=== PATIENT | male | born 1990 | race Caucasian/White ===

== ENCOUNTER 2016-02-18 14:57 | Inpatient (IN) | payer MEDICAID, OTHER ==
[~2016-02-18] VITALS: Ht 167.6 cm; Wt 68.0 kg
[2016-02-18 15:04] VITALS: Ht 167.6 cm; Wt 68.0 kg
[2016-02-18] MEDS ORDERED: HYDROmorphONE 1 MG/ML SYG IV STA ×2 (15:25→18:24)
[2016-02-18] MEDS ORDERED: SOD CHLORIDE 0.9% 1,000 ML IV STA (15:25)
[2016-02-18] MEDS ORDERED: ONDANSETRON 4 MG INJ IV STA (15:25)
[2016-02-18 15:45] LABS: BASOPHILS % 0.3 % (0.0-2.0); EOSINOPHILS % 0.3 % (0.0-7.0); HEMATOCRIT 45.6 % (42.0-52.0); HEMOGLOBIN 15.4 g/dl (14.0-18.0); LYMPHOCYTES # 1.9 10^3/ul (0.8-2.9); LYMPHOCYTES % 19.7 % (15.0-51.0); MEAN CORPUSCULAR HEMOGLOBIN 30.2 pg (29.0-33.0); MEAN CORPUSCULAR HGB CONC 33.8 g/dl (32.0-37.0); MEAN CORPUSCULAR VOLUME 89.4 fl (82.0-101.0); MONOCYTE # 0.6 10^3/ul (0.3-0.9); MONOCYTES % 6.4 % (0.0-11.0); NEUTROPHIL # 6.9 10^3/ul (1.6-7.5); NEUTROPHILS % 73.3 % (39.0-77.0); PLATELET COUNT 285 10^3/UL (140-440); RED CELL DISTRIBUTION WIDTH 12.6 % (11.5-14.5); UNCORRECTED WBC 9.4 10^3/ul (4.8-10.8); WHITE BLOOD COUNT 9.4 10^3/ul (4.8-10.8)
[2016-02-18 15:50] LABS: CONDITION 1
[2016-02-18 15:54] LABS: INR 0.92; PROTIME 12.4 Sec (12.2-14.2)
[2016-02-18 15:55] LABS: PARTIAL THROMBOPLASTIN TIME 26.7 Sec (25.0-35.0)
[2016-02-18 16:04] LABS: POTASSIUM 3.6 mmol/L (3.5-5.1)
[2016-02-18 16:06] LABS: CREATININE 0.95 mg/dl (0.61-1.24)
[2016-02-18 16:07] LABS: CALCIUM 9.3 mg/dl (8.4-10.2)
[2016-02-18 16:19] LABS: TROPONIN-I 0.072 ng/ml (0.00-0.12)
--- NOTE | 2016-02-18 17:16 | RADRPT ---
PROCEDURE: MR Lumbar Spine without and with contrast CLINICAL INDICATION: Back pain TECHNIQUE: An MRI of the lumbar spine was performed on a Pacinian short bore high-definition 1.5 [employer] utilizing the following sequences: Sagittal and axial T1 weighted, sagittal and axial T2 weig hted, and sagittal T2 weighted with fat saturation. Axial and sagittal T1 fat sat images were obtain ed after administration of 10 cc of Magnevist. COMPARISON: None. FINDINGS: There is normal lordosis of the lumbar spine. No vertebral body subluxation is seen. The vertebral bodies are normal in height and signal intensity. The conus medullaris is visible at the L1 level and appears grossly normal. There is no abnormal contrast enhancement in the conus or cauda equina nerve roots. There is a congenitally narrow spinal canal and L1 through L5 due to short pedicles. L1-L2: The disc is normal in height and signal intensity. No significant disc bulge or protrusion is evident. The central canal and foramina are adequately patent. L2-L3: The disc is normal in height and signal intensity. No significant disc bulge or protrusion is evident. The central canal and foramina are adequately patent. L3-L4: There is mild disk height loss with disk desiccation. There is a prominent central disk pro trusion measures up to 6 mm in AP dimension compressing the thecal sac. There is mild facet arthrop athy. Bilateral neural foramina remain adequately patent. L4-L5: The disk height is maintained. There is mild disk desiccation. There is a broad-based righ t foraminal disk protrusion effacing the right lateral recess. There is mild right neural foraminal stenosis. There is mild bilateral facet arthropathy. The central canal and left neural foramen re isac adequately patent. L5-S1: There is mild disk height loss with disk desiccation. There is minimal disk bulge and mild facet arthropathy. The central canal and bilateral neural foramina remain adequately patent. IMPRESSION: 1. No acute osseous or ligamentous injury. 2. 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 At L3-L4: Prominent central disk protrusion with significant mass effect upon the thecal sac. Both lateral recesses and neural foramina remain adequately patent. At L4-L5: Right foraminal disk protrusion with mild effacement of the right lateral recess. Correl ate with right L5 radiculopathy. Mild right neural foraminal stenosis. The central canal and left neural foramen remain adequately patent. RPTAT: BB .Rylan Sharma MD, Date Time Electronically viewed and signed by .Rylan Sharma MD, on 02/18/2016 17:15 .O/
[2016-02-18] MEDS ORDERED: ONDANSETRON 4 MG INJ IV PRN ×2 (18:30→22:00)
[2016-02-18] MEDS ORDERED: ACETAMINOPHEN 325 MG TAB PO PRN ×2 (18:30→22:00)
[2016-02-18 19:30] VITALS: TEMP 98.6
--- NOTE | 2016-02-18 20:30 | ERD ---
ER Documentation Chief Complaint Date/Time DATE: 02/18/16 TIME: 20:28 Chief Complaint SUUDEN ONSET OF MID BACK PAIN AT WORK HPI Patient is a 25-year-old male with high cholesterol who presents with lower back pain. He was digging with a shovel at 1 PM and had an acute onset of lower back pain. He cannot walk. He needs to be carried into the emergency department. He has had no treatment as of yet. He has never had this before. Upon review of old medical records this is the patient's first visit to the emergency department. He does not currently have a primary doctor. ROS All systems reviewed and are negative except as per history of present illness. Medications Home Meds No Active Prescriptions or Reported Meds Allergies Allergies: Coded Allergies: No Known Allergy (Unverified , 02/18/16) PMhx/Soc Medical and Surgical Hx: pt denies Medical Hx, pt denies Surgical Hx Hx Alcohol Use: Yes Hx Substance Use: No Hx Tobacco Use: No Smoking Status: Former smoker FmHx Family History: No diabetes Physical Exam Vitals Vital Signs Date Time Temp Pulse Resp B/P Pulse Ox O2 Delivery O2 Flow Rate FiO2 02/18/16 17:22 98.0 89 18 126/67 99 Room Air 02/18/16 15:04 98.0 112 18 133/84 98 Physical Exam Const: Moderate distress secondary to pain Head: Atraumatic Eyes: Normal Conjunctiva ENT: Normal External Ears, Nose and Mouth. Neck: Full range of motion..~ No meningismus. Resp: Clear to auscultation bilaterally Cardio: Regular rate and rhythm, no murmurs Abd: Soft, non tender, non distended. Normal bowel sounds Skin: No petechiae or rashes Back: Midline tenderness in the lumbar spine without deformity noted Ext: No cyanosis, or edema Neur: Awake and alert, weakness in the lower extremities bilaterally, no saddle anesthesia, no incontinence Result Diagram: 02/18/16 1530 02/18/16 1530 Results 24 hrs Laboratory Tests Test 02/18/16 15:30 Activated Partial Thromboplast Time 26.7Sec Anion Gap 16 Basophils # 0.010^3/ul Basophils % 0.3% Blood Morphology Comment Blood Urea Nitrogen 17mg/dl Calcium Level 9.3mg/dl Carbon Dioxide Level 30mmol/L Chloride Level 102mmol/L Creatinine 0.95mg/dl Eosinophils # 0.010^3/ul Eosinophils % 0.3% Glucose Level 98mg/dl Hematocrit 45.6% Hemoglobin 15.4g/dl INR International Normalized Ratio 0.92 Lymphocytes # 1.910^3/ul Lymphocytes % 19.7% Mean Corpuscular Hemoglobin 30.2pg Mean Corpuscular Hemoglobin Concent 33.8g/dl Mean Corpuscular Volume 89.4fl Mean Platelet Volume 7.0fl Monocytes # 0.610^3/ul Monocytes % 6.4% Neutrophils # 6.910^3/ul Neutrophils % 73.3% Nucleated Red Blood Cells # 0.010^3/ul Nucleated Red Blood Cells % 0.0/100WBC Platelet Count 87539^3/UL Potassium Level 3.6mmol/L Prothrombin Time 12.4Sec Prothrombin Time Ratio 1.0 Red Blood Count 5.1010^6/ul Red Cell Distribution Width 12.6% Sodium Level 144mmol/L Troponin I 0.072ng/ml White Blood Count 9.410^3/ul Current Medications Medications (Trade) Dose Ordered Sig/Denzel Route PRN Reason Start Time Stop Time Status Last Admin Dose Admin Sodium Chloride (NS) 1,000 ml @ 1,000 mls/hr Q1H STAT IV 02/18/16 15:25 02/18/16 16:24 DC 02/18/16 15:33 Hydromorphone HCl (Dilaudid) 1 mg ONCE STAT IV 02/18/16 15:25 02/18/16 15:27 DC 02/18/16 15:33 Ondansetron HCl (Zofran Inj) 4 mg ONCE STAT IV 02/18/16 15:25 02/18/16 15:27 DC 02/18/16 15:33 Hydromorphone HCl (Dilaudid) 1 mg ONCE STAT IV 02/18/16 18:24 02/18/16 18:25 DC 02/18/16 18:37 Ondansetron HCl (Zofran Inj) 4 mg BRIDGE ORDER PRN IV NAUSEA AND/OR VOMITING 02/18/16 18:30 02/19/16 18:29 Acetaminophen (Tylenol Tab) 650 mg ER BRIDGE PRN PO MILD PAIN/FEVER 02/18/16 18:30 02/19/16 18:29 Procedures/MDM MRI shows central disc protrusion with compression of the thecal sac per radiology. Patient is a 25-year-old male presents with acute onset of lower back pain. He has intractable pain with ambulatory dysfunction. He will need admission for pain control. At this point I doubt cauda equina syndrome, epidural hematoma, or epidural abscess. I spoke with Dr. nava who will see the patient in consultation. I spoke with Dr. Euceda who will admit the patient to the hospital as he does not currently have a primary doctor and has never been admitted before. The patient will be admitted to a medical surgical bed. Departure Diagnosis: Primary Impression: Back pain Back pain location: low back pain Chronicity: acute Back pain laterality: midline Sciatica presence: without sciatica Qualified Code: M54.5 - Acute midline low back pain without sciatica Additional Impression: Ambulatory dysfunction Condition: Stable SHAMIR BUCIO MD Feb 18, 2016 20:30
[2016-02-18 20:45] VITALS: BP 140/79; RESP 68
[2016-02-18] MEDS ORDERED: NACL 0.9% 3 ML SYG IV SCH (22:00)
[2016-02-18] MEDS ORDERED: HYDROCODONE/APAP (5/325) TAB PO PRN (22:00)
[2016-02-18] MEDS: DOCUSATE SODIUM 100 MG CAP PO SCH (22:31)
[2016-02-18] MEDS: morphine 2 MG INJ IV PRN (22:33)
--- NOTE | 2016-02-18 23:52 | HP ---
DATE OF ADMISSION: 02/18/2016 TIME: 10:00 p.m. CHIEF COMPLAINT: Back pain. HISTORY OF PRESENT ILLNESS: The patient is a 25-year-old male with no significant past medical hist ory. 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 He does stat e that he had an episode of back pain approximately a year ago. The patient had a lumbar spine MRI in the ER that showed no acute osseous or ligamentous injury. There was congenital narrow spinal co rd with disk disease L3-L4 and L4-L5. There is also L3-L4 central disk protrusion with significant mass effect on the thecal sac. There was also L4-L5 right foraminal disk protrusion with mild effac ement of the right lateral recess. Neurosurgery with Dr. Langston was contacted in the ED. At this time, recommendation is for no surgery. The patient does state that he has significant pain at this time in his back. He has no other complaints. Denies any weakness in his extremities or any incon tinence. The patient cannot walk at this time secondary to pain. Once again, has no other complain ts. PAST MEDICAL HISTORY: Denies. PAST SURGICAL HISTORY: Denies. HOME MEDICATIONS: None reported. FAMILY HISTORY: Mother with back problems and heart problems, specifics not known. SOCIAL HISTORY: Denies any current alcohol, tobacco, or drug abuse. States he used to smoke and dr zahida 2 years ago, but has since quit. REVIEW OF SYSTEMS: A 12-point review of systems negative except for that as discussed in HPI. PHYSICAL EXAMINATION: VITAL SIGNS: Temperature is 98.5, pulse 60, respiratory rate 18, BP is 140/79, saturation 98% on ro om air. GENERAL: Mild distress. Alert and oriented. HEENT: Normocephalic, atraumatic. Pupils equal, round, and reactive to light. LUNGS: Clear to auscultation. CARDIOVASCULAR: Regular rate and rhythm. ABDOMEN: Nondistended, nontender, soft. EXTREMITIES: No clubbing, cyanosis, or edema. LABORATORIES: CBC within normal limits. Chemistry within normal limits. INR is 0.92. DIAGNOSTICS: Lumbar spine MRI as per HPI. ASSESSMENT AND PLAN: 1. Severe back pain. The patient is unable to ambulate at this time secondary to the pain. The pa tient has chronic prominent central disk protrusion at L3-L4 with significant mass effect upon the t hecal sac. The patient also has L4-L5 right foraminal disk protrusion with mild effacement of the r ight lateral recess. Dr. Langston, neurosurgeon, has already evaluated and states that the patient d oes not need surgery at this time. Treat medically with pain control. We will get a PT evaluation. Will discuss the need for steroids with neurosurgery. 2. Prophylaxis. Lovenox. Dictated By: MONI LYNNE MD BS/MOUNIKA Conf#: [id number] DID#: [id number]
[2016-02-19] MEDS: morphine 2 MG INJ IV PRN ×4 (03:18→20:54)
[2016-02-19 05:43] LABS: POTASSIUM 3.7 mmol/L (3.5-5.1)
[2016-02-19 05:45] LABS: BASOPHILS % 0.4 % (0.0-2.0); CREATININE 0.81 mg/dl (0.61-1.24); EOSINOPHILS # 0.1 10^3/ul (0.0-0.5); EOSINOPHILS % 1.1 % (0.0-7.0); HEMATOCRIT 43.7 % (42.0-52.0); HEMOGLOBIN 15.1 g/dl (14.0-18.0); LYMPHOCYTES # 2.3 10^3/ul (0.8-2.9); LYMPHOCYTES % 33.7 % (15.0-51.0); MEAN CORPUSCULAR HEMOGLOBIN 30.7 pg (29.0-33.0); MEAN CORPUSCULAR HGB CONC 34.4 g/dl (32.0-37.0); MEAN CORPUSCULAR VOLUME 89.2 fl (82.0-101.0); MEAN PLATELET VOLUME 7.1 fl (7.4-10.4); MONOCYTE # 0.6 10^3/ul (0.3-0.9); MONOCYTES % 8.8 % (0.0-11.0); NEUTROPHIL # 3.8 10^3/ul (1.6-7.5); PLATELET COUNT 285 10^3/UL (140-440); RED CELL DISTRIBUTION WIDTH 12.4 % (11.5-14.5); UNCORRECTED WBC 6.8 10^3/ul (4.8-10.8); WHITE BLOOD COUNT 6.8 10^3/ul (4.8-10.8)
[2016-02-19 05:46] LABS: CALCIUM 9.1 mg/dl (8.4-10.2); PHOSPHORUS 4.5 mg/dl (2.5-4.9)
[2016-02-19 05:47] LABS: CHOL/HDL RATIO 4.6 RATIO; MAGNESIUM 1.9 mg/dl (1.7-2.5)
[2016-02-19 06:10] LABS: CONDITION 1
[2016-02-19 07:46] VITALS: BP 109/84; RESP 18
[2016-02-19] MEDS: ENOXAPARIN 40 MG/0.4 ML SYG SC SCH (08:55)
[2016-02-19] MEDS: DOCUSATE SODIUM 100 MG CAP PO SCH ×2 (08:59→22:28)
--- NOTE | 2016-02-19 14:19 | PN ---
Date/Time of Note Date/Time of Note DATE: 02/19/16 TIME: 14:17 Assessment/Plan VTE Prophylaxis VTE Prophylaxis Intervention: LMWH Lines/Catheters IV Catheter Type (from Nrsg): Saline Lock Assessment/Plan Assessment/Plan 1. New-onset back pain. 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 Continue pain control. Await neurosurgery evaluation. 2. Fluids, electrolytes, and nutrition. Regular diet as tolerated. 3. DVT prophylaxis. Subcutaneous Lovenox. 4. Gastrointestinal prophylaxis. Histamine 2 receptor blockers. 5. Plan. Await neurosurgery evaluation. Continue pain control. Case discussed with Dr. Crump. Subjective 24 Hr Interval Summary Free Text/Dictation Complains of pain with minimal movement. Remains on bedrest. Exam/Review of Systems Vital Signs Vitals Vital Signs Date Time Temp Pulse Resp B/P Pulse Ox O2 Delivery O2 Flow Rate FiO2 02/19/16 07:46 98.6 80 18 109/84 96 02/18/16 19:30 Room Air Intake and Output 02/18/16 02/18/16 02/19/16 15:00 23:00 07:00 Intake Total 380 ml Output Total 1200 ml Balance -820 ml Exam General: Adequately build 25 year-old male lying in bed in no apparent distress. HEENT: Normocephalic, atraumatic. Eyes: Anicteric sclerae, conjunctivae clear. ENT: Nasal septum midline, oral mucosa moist. Neck supple, no JVD noticed. Respiratory: Bilaterally clear breath sounds. No use of accessory muscles of respiration. No adventitious breath sounds. Cardiovascular: S1, S2 heard. No murmurs or gallops. Abdomen: Soft, nontender, and nondistended. Bowel sounds positive in all 4 quadrants. Genitourinary: Deferred. Extremities: No cyanosis, no clubbing, no edema. Peripheral pulses palpable. Neurologic: Cranial nerves II through XII grossly intact. The patient is awake, alert, and oriented. Skin: Normal skin turgor. No skin rashes. Results Result Diagram: 02/19/16 0457 02/19/16 0457 Results 24 hrs Laboratory Tests Test 02/18/16 15:30 02/19/16 04:57 Activated Partial Thromboplast Time 26.7 Anion Gap 16 15 Basophils # 0.0 0.0 Basophils % 0.3 0.4 Blood Morphology Comment Blood Urea Nitrogen 17 15 Calcium Level 9.3 9.1 Carbon Dioxide Level 30 27 Chloride Level 102 107 Creatinine 0.95 0.81 Eosinophils # 0.0 0.1 Eosinophils % 0.3 1.1 Glucose Level 98 81 Hematocrit 45.6 43.7 Hemoglobin 15.4 15.1 INR International Normalized Ratio 0.92 Lymphocytes # 1.9 2.3 Lymphocytes % 19.7 33.7 Mean Corpuscular Hemoglobin 30.2 30.7 Mean Corpuscular Hemoglobin Concent 33.8 34.4 Mean Corpuscular Volume 89.4 89.2 Mean Platelet Volume 7.0 L 7.1 L Monocytes # 0.6 0.6 Monocytes % 6.4 8.8 Neutrophils # 6.9 3.8 Neutrophils % 73.3 56.0 Nucleated Red Blood Cells # 0.0 0.0 Nucleated Red Blood Cells % 0.0 0.0 Platelet Count 285 285 Potassium Level 3.6 3.7 Prothrombin Time 12.4 Prothrombin Time Ratio 1.0 Red Blood Count 5.10 4.90 Red Cell Distribution Width 12.6 12.4 Sodium Level 144 145 H Troponin I 0.072 White Blood Count 9.4 6.8 # Cholesterol Level 183 Cholesterol/HDL Ratio 4.6 HDL Cholesterol 39 Hemoglobin A1c 5.2 LDL Cholesterol, Calculated 126 Magnesium Level 1.9 Phosphorus Level 4.5 Triglycerides Level 89 Medications Medications Current Medications Ondansetron HCl (Zofran Inj) 4 mg Q6H PRN IV NAUSEA AND/OR VOMITING; Start 02/17 at 22:00 Acetaminophen (Tylenol Tab) 650 mg Q6H PRN PO PAIN LEVEL 1-3 OR FEVER; Start at 22:00 Acetaminophen/ Hydrocodone Bitart ([place] (5/325)) 1 tab Q6H PRN PO MODERATE PAIN LEVEL 4-6 Last administered on 02/19/16 06:04; Admin Dose 1 TAB; Start 02/17 at 22:00 Morphine Sulfate (morphine) 2 mg Q2H PRN IV SEVERE PAIN LEVEL 7-10 Last administered on 02/19/16 11:01; Admin Dose 2 MG; Start 02/18/16 at 22:00 Docusate Sodium (Colace) 100 mg Q12H PO Last administered on 02/19/16 08:59; Admin Dose 100 MG; Start 02/18/16 at 22:00 Enoxaparin Sodium (Lovenox) 40 mg DAILY SC Last administered on 02/19/16t 08:55 ; Admin Dose 40 MG; Start 02/19/16 at 09:00 HERSON VICENTE NP Feb 19, 2016 14:18
[2016-02-19] MEDS ORDERED: DIAZEPAM 5 MG TAB PO PRN (18:00)
[2016-02-19] MEDS: KETOROLAC 30 MG INJ IV SCH ×2 (18:28→23:35)
[2016-02-19] MEDS: DEXAMETHASONE 4 MG/ML 1 ML INJ IV SCH ×2 (18:28→23:35)
[2016-02-19 20:27] VITALS: BP 122/64; RESP 18
[2016-02-20] MEDS: KETOROLAC 30 MG INJ IV SCH ×3 (05:07→17:25)
[2016-02-20] MEDS: DEXAMETHASONE 4 MG/ML 1 ML INJ IV SCH ×3 (05:07→17:26)
[2016-02-20 07:53] VITALS: BP 98/56; RESP 20
[2016-02-20] MEDS: ENOXAPARIN 40 MG/0.4 ML SYG SC SCH (08:28)
[2016-02-20] MEDS: DOCUSATE SODIUM 100 MG CAP PO SCH ×2 (10:45→21:25)
--- NOTE | 2016-02-20 11:16 | PN ---
Date/Time of Note Date/Time of Note DATE: 02/20/16 TIME: 11:15 Assessment/Plan VTE Prophylaxis VTE Prophylaxis Intervention: LMWH Lines/Catheters IV Catheter Type (from Nrs): Saline Lock Assessment/Plan Chief Complaint/Hosp Course 1. New-onset back pain. 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 Continue pain control. Status post neurosurgery evaluation. The patient was started on Decadron. Symptoms improving. No surgical interventions as of now. Will order physical therapy evaluation. 2. Fluids, electrolytes, and nutrition. Regular diet as tolerated. 3. DVT prophylaxis. Subcutaneous Lovenox. 4. Gastrointestinal prophylaxis. Histamine 2 receptor blockers. 5. Plan. Await physical therapy evaluation. Continue pain control. Case discussed with Dr. Crump. Problems: Subjective 24 Hr Interval Summary Free Text/Dictation Back pain well controlled. Exam/Review of Systems Vital Signs Vitals Vital Signs Date Time Temp Pulse Resp B/P Pulse Ox O2 Delivery O2 Flow Rate FiO2 02/20/16 07:53 97.7 77 20 98/56 97 02/18/16 19:30 Room Air Intake and Output 02/19/16 02/19/16 02/20/16 14:59 22:59 06:59 Intake Total 1200 ml 960 ml Output Total 900 ml 550 ml Balance 300 ml 410 ml Exam General: Adequately build 25 year-old male lying in bed in no apparent distress. HEENT: Normocephalic, atraumatic. Eyes: Anicteric sclerae, conjunctivae clear. ENT: Nasal septum midline, oral mucosa moist. Neck supple, no JVD noticed. Respiratory: Bilaterally clear breath sounds. No use of accessory muscles of respiration. No adventitious breath sounds. Cardiovascular: S1, S2 heard. No murmurs or gallops. Abdomen: Soft, nontender, and nondistended. Bowel sounds positive in all 4 quadrants. Genitourinary: Deferred. Extremities: No cyanosis, no clubbing, no edema. Peripheral pulses palpable. Neurologic: Cranial nerves II through XII grossly intact. The patient is awake, alert, and oriented. Skin: Normal skin turgor. No skin rashes. Results Result Diagram: 02/19/16 0457 02/19/16 0457 Medications Medications Current Medications Ondansetron HCl (Zofran Inj) 4 mg Q6H PRN IV NAUSEA AND/OR VOMITING; Start 02/17 at 22:00 Acetaminophen (Tylenol Tab) 650 mg Q6H PRN PO PAIN LEVEL 1-3 OR FEVER; Start at 22:00 Acetaminophen/ Hydrocodone Bitart ([place] (5/325)) 1 tab Q6H PRN PO MODERATE PAIN LEVEL 4-6 Last administered on 02/19/16 06:04; Admin Dose 1 TAB; Start 02/17 at 22:00 Morphine Sulfate (morphine) 2 mg Q2H PRN IV SEVERE PAIN LEVEL 7-10 Last administered on 02/19/16 20:54; Admin Dose 2 MG; Start 02/18/16 at 22:00 Docusate Sodium (Colace) 100 mg Q12H PO Last administered on 02/20/16 10:45; Admin Dose 100 MG; Start 02/18/16 at 22:00 Enoxaparin Sodium (Lovenox) 40 mg DAILY SC Last administered on 02/20/16 08:28 ; Admin Dose 40 MG; Start 02/19/16 at 09:00 Dexamethasone (Decadron) 4 mg Q6 IV Last administered on 02/20/16 05:07; Admin Dose 4 MG; Start 02/19/16 at 18:00; Stop 02/21/16 at 17:59 Ketorolac Tromethamine (Toradol) 30 mg Q6H IV Last administered on 02/20/16 05: 07; Admin Dose 30 MG; Start 02/19/16 at 18:00; Stop 02/21/16 at 17:59 Diazepam (Valium) 5 mg TID PRN PO MUSCLE SPASMS; Start 02/19/16 at 18:00 HERSON VICENTE NP Feb 20, 2016 11:15
[2016-02-20 12:30] VITALS: BP 110/78; PULSE 70; RESP 16
--- NOTE | 2016-02-20 19:45 | CONS ---
Date/Time of Note Date/Time of Note DATE: 02/20/16 TIME: 19:41 Assessment/Plan Assessment/Plan Additional Assessment/Plan Acute lumbago with lumbar spondylosis, possible acute disc herniations. Pain controlled. No neurological deficits. Can D/C Decadron tomorrow. f/u with PMD for pain management. Consultation Date/Type/Reason Admit Date/Time Feb 18, 2016 at 18:30 Initial Consult Date Type of Consultation: Neurosurgery Reason for Consultation Back Pain 24 HR Interval Summary Free Text/Dictation Patient much better today. States that his pain has improved. Denies thigh numbness, denies radiating pain. Denies bowel or bladder issues or saddle anesthesia. Exam/Review of Systems Vital Signs Vitals Vital Signs Date Time Temp Pulse Resp B/P Pulse Ox O2 Delivery O2 Flow Rate FiO2 02/20/16 12:30 70 16 110/78 02/20/16 07:53 97.7 97 02/18/16 19:30 Room Air Intake and Output 02/19/16 02/19/16 02/20/16 15:00 23:00 07:00 Intake Total 1200 ml 960 ml Output Total 900 ml 550 ml Balance 300 ml 410 ml Exam Constitutional: alert, oriented, well developed Musculoskeletal: muscle tone, other (back non-tender to palapation. Able to move legs better without pain. ) Neurological: COMPLAINT ANALYST II-XII intact, nl mental status, nl speech, nl strength Results Result Diagram: 02/19/16 0457 02/19/16 0457 Medications Medications Current Medications Ondansetron HCl (Zofran Inj) 4 mg Q6H PRN IV NAUSEA AND/OR VOMITING; Start 02/17 at 22:00 Acetaminophen (Tylenol Tab) 650 mg Q6H PRN PO PAIN LEVEL 1-3 OR FEVER; Start at 22:00 Acetaminophen/ Hydrocodone Bitart ([place] (5/325)) 1 tab Q6H PRN PO MODERATE PAIN LEVEL 4-6 Last administered on 02/19/16 06:04; Admin Dose 1 TAB; Start 02/17 at 22:00 Morphine Sulfate (morphine) 2 mg Q2H PRN IV SEVERE PAIN LEVEL 7-10 Last administered on 02/19/16 20:54; Admin Dose 2 MG; Start 02/18/16 at 22:00 Docusate Sodium (Colace) 100 mg Q12H PO Last administered on 02/20/16 10:45; Admin Dose 100 MG; Start 02/18/16 at 22:00 Enoxaparin Sodium (Lovenox) 40 mg DAILY SC Last administered on 02/20/16 08:28 ; Admin Dose 40 MG; Start 02/19/16 at 09:00 Dexamethasone (Decadron) 4 mg Q6 IV Last administered on 02/20/16 17:26; Admin Dose 4 MG; Start 02/19/16 at 18:00; Stop 02/21/16 at 17:59 Ketorolac Tromethamine (Toradol) 30 mg Q6H IV Last administered on 02/20/16 17: 25; Admin Dose 30 MG; Start 02/19/16 at 18:00; Stop 02/21/16 at 17:59 Diazepam (Valium) 5 mg TID PRN PO MUSCLE SPASMS; Start 02/19/16 at 18:00 FRANCINE TAPIA MD Feb 20, 2016 19:45
[2016-02-20 21:36] VITALS: BP 109/58; RESP 18
[2016-02-21] MEDS: KETOROLAC 30 MG INJ IV SCH ×3 (00:04→12:42)
[2016-02-21] MEDS: DEXAMETHASONE 4 MG/ML 1 ML INJ IV SCH ×3 (00:04→12:42)
[2016-02-21 07:34] VITALS: BP 102/52; RESP 18
[2016-02-21] MEDS: ENOXAPARIN 40 MG/0.4 ML SYG SC SCH (08:23)
[2016-02-21] MEDS: DOCUSATE SODIUM 100 MG CAP PO SCH (08:23)
--- NOTE | 2016-02-21 09:25 | DS ---
DATE OF ADMISSION: 02/18/2016 DATE OF DISCHARGE: 02/21/2016 PRESENTING COMPLAINT: Back pain. ADMISSION DIAGNOSIS: Severe back pain with inability to ambulate secondary to pain. CONSULTS ON THE CASE: Dr. Taco Langston INTERVENTIONS: The patient had an MRI of the lumbar spine that showed the followin. No acute osseous or ligamentous injury. 2. A congenitally narrowed spinal canal with disk disease at L3-L4 and L4-L5, and then at L3 and L4 there is a prominent central disk protrusion with significant mass effect on the thecal sac, and at L4-L5 there is a right foramina mildly distressed protrusion with mild effacement of the right late ral recess concerning for a right L5 radiculopathy. HOSPITAL COURSE: The patient was admitted because the above and we commenced pain control and got a neurosurgical evaluation. The neurosurgeon saw the patient and diagnosed him as follows: Acute codi mbago with lumbar spondylosis with possible acute disk herniations without neurological deficits. T recommendation was as patient has improved significantly on Decadron therapy to wean that off a nd continue outpatient followup with patient's primary care physician. The patient was also seen by physical therapy and initially the patient had a lot of difficulty with functional mobility due to the pain, but he did very well, and after just a few therapy sessions, t he patient is feeling much better today and is asking for discharge. Today physical therapy is judith g to try ambulating him without the walker and see how he does. They do, however, recommend outpati ent physical therapy which I will order, and he might need to be discharged with a front-wheeled wal ker, depending on the findings of today's physical therapy sessions. DISCHARGE MEDICATIONS: We will be: 1. Ibuprofen 400 mg every 6 hours as needed for pain with food. 2. [place] 5/325 one tablet every 6 hours as needed for pain. 3. Dexamethasone of 4 mg q. 12h. for 1 day and then 2 mg q.12h. the next day, then 2 mg once a day the next day, and then discontinue. 4. Diazepam 5 mg q.8 hours as needed for muscle spasms. 5. Colace 100 mg twice a day for 2 weeks. DISPOSITION: To home with physical therapy, possible outpatient versus inpatient versus home health . Followup will be with primary care physician within 1 to 2 weeks. DIET: Recommended diet is regular. ACTIVITY: Will be as tolerated. Overall time spent on discharge has been about 45 minutes. Dictated By: HERMINIA DOTY MD, BA/MOUNIKA Conf#: [id number] DID#: [id number]
[2016-02-21] MEDS ORDERED: HYDR-3498 PO (09:44)
[2016-02-21] MEDS ORDERED: IBUP400T22 PO (09:44)
[2016-02-21] MEDS ORDERED: MED4DP PO (09:44)
[2016-02-21] MEDS ORDERED: DIAZ5TAB4 PO (09:44)
--- NOTE | 2016-02-21 09:45 | PDOCDIS ---
Discharge Instructions DIAGNOSIS Discharge Diagnosis: Chronic lumbar stenosis CONDITION Patient Condition: Stable HOME CARE INSTRUCTIONS: Special Diet: Regular diet ACTIVITY: Activity Restrictions: Rest between Activity Avoid heavy lifting FOLLOW UP/APPOINTMENTS Appointments Followup with your primary doctor within the next 1-2 weeks. If you don't have one please let someone know, we can give you resources that may help you pick one. You may also call your insurance company to assign one to you. Review your medication list with your nurse before leaving and if you need new prescriptions please let your nurse know. I may have made changes to your home medications or given you new prescriptions , please let your primary doctor know as well. Stay compliant with your medications and report any side effects to your PCP or pharmacist. Return to the ER if you have any concerns and cannot reach your doctors or call your insurance company, they usually have a nurse that can help you. HERMINIA DOTY Feb 21, 2016 09:45
[2016-02-21] MEDS ORDERED: DOCU-144 PO (10:47)
--- NOTE | 2016-02-22 06:40 | CONS ---
DATE OF ADMISSION: 02/18/2016 DATE OF CONSULTATION: 02/19/2016 TYPE OF CONSULTATION: Neurosurgical. REQUESTING PHYSICIAN: Robert Dee MD INDICATION FOR CONSULTATION: Low back pain. HISTORY OF PRESENT ILLNESS: The patient is a 25-year-old male without significant past medical history, works in construction, began having lower back pain on 02/18/2016. The patient states that about 8 months ago, he also had back pain where he could not extend his back, however, this resolved. The patient states he never sought treatment for this. The patient states that the pain was so severe that the patient could not ambulate. The patient had an MRI of the lumbar spine that showed no evidence of fracture or ligamentous injury. There was also reported evidence of tumor or infection. 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 There is no significant marrow signal change. The patient denies any weakness, saddle anesthesia or bowel or bladder incontinence. He does report some numbness on the anterolateral thigh bilaterally and states that he may occasionally get some pain that radiates below was knee, but this is rare; the patient mostly has low back pain. PAST MEDICAL HISTORY: Denies. PAST SURGICAL HISTORY: Denies. HOME MEDICATIONS: The patient does not take any medications. SOCIAL HISTORY: The patient denies alcohol, tobacco or drug abuse. He states he used to smoke but quit 2 years ago. FAMILY HISTORY: Denies any history of bleeding disorders. REVIEW OF SYSTEMS: A 12-point review of systems was performed. Pertinent positives and negatives listed in history of present illness. CONSTITUTIONAL: The patient denies fevers, chills, or weight loss. HEMATOLOGIC: Denies any history of easy bruising or bleeding. PHYSICAL EXAMINATION: VITAL SIGNS: The patient's temperature is 98.6, pulse 80, respirations 18, blood pressure 109/84, saturating 96% on room air. GENERAL: The patient is well-developed, well-nourished young male lying in the hospital bed in no acute distress. HEAD AND NECK: Normocephalic, atraumatic. His neck is supple, nontender. MUSCULOSKELETAL: The patient has no tenderness to palpation, but is lying flat on the bed. Any movement such as twisting, turning or lifting his leg cause the patient significant low back pain. CHEST: Clear to auscultation. ABDOMEN: Nontender and nondistended, soft. EXTREMITIES: No clubbing, cyanosis, or edema. NEUROLOGIC: The patient is awake, alert, and oriented x3, fluent speech, follows commands readily and appropriately. Cranial nerves II through XII are serially tested and are intact. Deep tendon reflexes with 1+ throughout. Sensation was intact to light touch except for those in the lateral anterior thigh, but the patient reported some diminished sensation to light touch. The patient had no loss of sensation over his genitals or buttocks. The patient's motor exam is 5/5 bilaterally in his upper extremities. He has 5/5 anterior tibialis, extensor hallus longus and gastrocnemius. The patient appears to have greater than 4+/5 hip flexion and knee flexion; however, this causes significant discomfort. RECTAL: The patient deferred. Gait not assessed secondary to condition. LABORATORY DATA: White count 6.8, hemoglobin 15.5, platelets 285. Coagulation panel was normal with a PT of 12.4, INR 0.92 and aPTT of 26.7. The patient's sodium was 145, BUN and creatinine 15 and 0.87, glucose of 81. REVIEW OF RADIOGRAPHIC RESULTS: I reviewed the patient's MRI, as well as the radiologist's result. The radiologist documented that there are no acute osseous or ligamentous injury. 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 At L4-5, there is prominent central bulge with significant mass effect on the thecal sac. Both lateral recess neural foramina remain adequately patent. At L4-5 there is a right foraminal disk protrusion, mild effect on the right lateral recess, correlation of right L5 radiculopathy and mild right foraminal stenosis. The central canal and left neural foramen adequately patent. I reviewed this study and concur with these results; however , the patient had a contrasted study and did not have axial T2 images which limits the evaluation. Overall, the patient does appear to have congenital stenosis and there is disk bulging at L3-4, L4-5, though it is difficult to see if there is a clear free disk fragment. There does not appear to be a clear and obvious annular tear. The most significant disk bulge appears to be the C3- 4 level. ASSESSMENT AND PLAN: A 25-year-old male was low back pain. I discussed patient 's signs, symptoms, physical examination and radiographic findings with him with use of a jewel staker. The patient does not have evidence of instability. There is no fracture, spondylolisthesis or spondylolysis. He has had congenital narrowing and this appears to be exacerbated by what appears to most likely L3 acute disk herniation and with a secondary disk lateral disk bulge at L4-5. It is not clear which of these is new. The patient does not appear to have symptoms consistent with an L4, L5 or S1 radiculopathy, although it is possible the patient may have an L3 radiculopathy, although I do not see compression of that nerve root. The patient also could simply have diskogenic pain and there likely may be an underlying annular tear. The patient does not have any focal weakness on examination, nor does he have any sensory deficits or loss of sphincter function. Given the patient's age, I would recommend nonoperative treatment. Since the patient's main complaint is low back pain rather radicular, it is difficult to state whether or not any type of decompression would actually help his low back pain and without evidence of instability, I would not recommend a fusion for diskogenic pain. The patient should be treated medically and I explained that this may take some time to resolve. Should the patient develop any significant motor deficits or loss of bowel or bladder function or saddle anesthesia to suggest equina syndrome, then surgery would be recommended. However, the patient's main complaint at this point is low back pain and for this, nonoperative treatment is recommended. It may be beneficial to have a repeat MRI with full axial T2 sequences for better assessment. The patient may also benefit from some steroids as well as nonsteroidal anti-inflammatories in the acute setting. It is questionable what the utility of bracing may be in this setting, so this could be considered if the patient is refractory to medical treatment. Thank you for allowing me to take care of this patient. Dictated By: FRANCINE TAPIA MD, LG/MOUNIKA Conf#: [id number] DID#: [id number] MTDChapo
== END 2016-02-21 14:15 | disposition home or self-care (01) | DRG 552 ==
LOC: E/R 14:57 → PP2 18:30
PROVIDERS: ADMIT Internal Medicine; ATTEND Internal Medicine
DX: M51.26 Other intervertebral disc displacement, lumbar region (principal); M47.816 Spondylosis without myelopathy or radiculopathy, lumbar region; M48.06 Spinal stenosis, lumbar region; M62.838 Other muscle spasm; Z87.891 Personal history of nicotine dependence
CPT/HCPCS: 36415; 72158; 80048; 80061; 83036; 83735; 84100; 84484; 85025; 85610; 85730; 96374; 96375; 96376; 97116; 97162; 97530; J1100; J1170; J1650; J1885; J2270; J2405; J7030

== ENCOUNTER 2016-02-27 14:16 | Outpatient (CLI) | payer MEDICAID ==
[~2016-02-27] VITALS: Ht 175.3 cm; Wt 67.3 kg
[~2016-02-27 14:16] MED LIST: DIAZ5TAB4 PO; DOCU-144 PO; HYDR-3498 PO; IBUP400T22 PO; MED4DP PO
[2016-02-27 14:53] VITALS: BP 120/69; PULSE 86; RESP 18; Ht 175.3 cm; Wt 67.3 kg
--- NOTE | 2016-02-28 11:50 | PN ---
Date/Time of Note Date/Time of Note DATE: 02/28/16 TIME: 11:50 Outpatient Progress Note Chief Complaint Back pain/herniated disc HPI Back pain/acute onset, moderately severe, not sure she did with loss of bladder or bowel control, aggravated by increase activity, relieved with pain medication , no history of any fall or injury, Herniated disc/patient has herniated disc, multiple areas, patient was recently hospitalized, patient was seen by neurologist and neurosurgery, no surgery required, patient was given multiple medication, including prednisone and muscle relaxer and pain medication, Review of Systems Const: No Fever, no chills, no Wt. loss, no Fatigue, normal appetite, no diaphoresis. Eyes: No pain, no discharge, no redness, no visual change, no foreign body. ENT: No pain, no bleeding, no congestion, no sore throat, no dysphagia, no discharge or rhinitis. Lymph: No adenopathy, no tender nodes, no lymphedema. Resp: No SOB, no cough, no sputum, no wheezing, no chest pain. CV: No chest pain, no palpitaions, no LYON, no PND, no edema. GI: Normal appetite, no pain, no nausea, no vomiting, no diarrhea, no blood, no constipation. : No frequency, no urgency, no dysuria, no hematuria, no flank pain, no discharge, no bleeding. Musc: Moderately severe back pain, no neck pain, no knee pain, no restricted ROM. Skin: No rash, no skin lesions, no erythema, no laceration, no bruising, no pruritus. Neuro: No FREEMAN, no dizziness, no syncope, no seizure, no focal-weakness. Endo: No polyuria, no polydypsia, no dry-skin, no temp-intolerance. Psych: No hallucinations, no depression, no anxiety, no suicidal ideation. Ext: No edema, no pain, no ulcer, no weakness. Physical Exam Vital Signs Date Time Temp Pulse Resp B/P Pulse Ox O2 Delivery O2 Flow Rate FiO2 02/27/16 14:53 99.1 86 18 120/69 98 Room Air General Appearance: A 25 year-old male who appears well-developed, well- nourished, in no acute distress. HEENT: Head normocephalic, atraumatic. Pupils equal, round, reactive to light and accommodate. Sclerae are no jaundice. Nasal turbinates pink without erythema or nasal discharge. Mucous membranes pink and moist without lesions. Oropharynx clear without any exudate or discharge. NECK: Supple. Trachea midline, No thyromegaly, No cervical lymphadenopathy, No mass, No carotid bruits, No JVD, Carotid pulses 2+ bilaterally. PULMONARY: Clear to auscultaion bilaterally, No retractions, Chest expansion symmetric bilaterally, no rales, no ronchi, no dulness on percussion. CARDIAC: Normal SI and S2, Regular rate and rythm, no murmur, gallop, or rub. GASTROINTESTINAL: Abdomen is soft, non-tender, Non Rigid, No distention, Positive bowel sounds x4 quadrants, Liver normal. SKIN: Warm, dry, no rash, no bruise, no echmosis. EXTREMITIES: Bilateral lower extremities normal, no edema, no phlabitus, pulse palpable, no contracture patient has a lower lumbosacral area discomfort, especially on local pressure, reducing range of motion, slightly. MUSCULOSKELETAL: Spine Normal, Non-tender, Normal range of motion, No swelling, no deformity, no clubbing, or cyanosis, the patient has no edema to bilateral lower extremities, dorsalis pedis pulses palpable bilaterally. NEUROLOGIC: The patient is awake, alert, oriented, responding to yes/no questions appropriately, moving all extremities, cranial nerve intact, normal strenght, normal power, normal coordination, normal gait. Allergies Coded Allergies: No Known Allergy (Unverified , 02/18/16) PMH Back pain/herniated disc Social Hx No smoking or drinking no drugs, Family Hx Noncontributory Assessment/Plan Impression Back pain/herniated disc Plan Continue all medication, patient has not refilled the pain medication and prednisone and muscle relaxer, patient advised to go and refill the medication today, Patient stated that patient was lifting up heavy stuff couple of days ago, and had severe pain, advised not to do any heavy lifting or pulling or pushing, patient education done, Discussed with the patient if there is any loss of bladder control or bowel control to immediately go to the ER, or call us, patient advised to follow with the primary care physician, Medications Home Meds Active Scripts Docusate Sodium* (Colace*) 100 Mg Capsule, 100 MG PO BID, #14 CAP Prov:HERMINIA DOTY 02/21/16 Ibuprofen* (Motrin*) 400 Mg Tab, 400 MG PO Q6H Y for PAIN, #16 TAB Prov:HERMINIA DOTY. 02/21/16 Methylprednisolone* (Medrol* DOSE PACK) 4 Mg/Dose-Pack Tab.ds.pk, 4 MG PO . DIRECTED, #1 PACKET Prov:HERMINIA DOTY 02/21/16 Hydrocodone Bit-Acetaminophen (Hydrocodone Bit-APAP) 5-325MG Tablet, 1 TAB PO Q6H Y for MODERATE PAIN LEVEL 4-6, #16 TAB Prov:HERMINIA DOTY 02/21/16 Diazepam* (Diazepam*) 5 Mg Tablet, 5 MG PO TID Y for MUSCLE SPASMS, #12 TAB Prov:HERMINIA DOTY 02/21/16 CUCO VELOZ MD Feb 28, 2016 11:50
== END 2016-02-27 16:25 | disposition home or self-care (01) ==
LOC: DCC 14:16
PROVIDERS: ATTEND Internal Medicine
DX: M54.9 Dorsalgia, unspecified (principal)
CPT/HCPCS: G0463

== ENCOUNTER 2018-07-24 15:03 | Emergency (ER) | payer MEDICAID ==
[~2018-07-24] VITALS: Ht 157.5 cm; Wt 66.5 kg
[~2018-07-24 15:03] MED LIST changes: -HYDR-3498 PO; +HYDR-3601 PO; +IBUP-1561 PO; -IBUP400T22 PO
[2018-07-24 15:06] VITALS: BP 145/77; PULSE 83; RESP 20; Ht 157.5 cm; Wt 66.5 kg
[2018-07-24] MEDS ORDERED: HYDR-4011 PO (15:40)
[2018-07-24] MEDS ORDERED: DOCU-144 PO (15:40)
--- NOTE | 2018-07-24 18:56 | ERD ---
ER Documentation Chief Complaint Chief Complaint RIGHT LOWER PELVIC PAIN X 1 MONTH, "BULGING" REPORTED HPI This is a 28-year-old Georgian-speaking male who presents to the ED complaining of painful bulge along his right groin for the past 2 months. Symptoms have become progressively worsening over the past 1 month. He denies any constipation nausea, vomiting. No fevers, no chills. He denies any associated testicular swelling or pain. No penile discharge. No other complaints. ROS All systems reviewed and are negative except as per history of present illness. Medications Home Meds Active Scripts Docusate Sodium* (Colace*) 100 Mg Capsule, 100 MG PO TID, #30 CAP Prov:DISHIGRIKIAN,ZEPYUR N PA-C 07/24/18 Hydrocodone/Acetaminophen ([place] 5-325 Tablet) 1 Each Tablet, 1 TAB PO Q6H PRN for PAIN, #7 TAB Prov:DISHIGRIKIAN,ZEPYUR N PA-C 07/24/18 Docusate Sodium* (Colace*) 100 Mg Capsule, 100 MG PO BID, #14 CAP Prov:LALITHAAMYATITO M. 02/21/16 Ibuprofen* (Motrin*) 400 Mg Tab, 400 MG PO Q6H PRN for PAIN, #16 TAB Prov:LALITHAAMYATITO M. 02/21/16 Methylprednisolone* (Medrol* DOSE PACK) 4 Mg/Dose-Pack Tab.ds.pk, 4 MG PO . DIRECTED, #1 PACKET Prov:LALITHABENIO M. 02/21/16 Hydrocodone Bit-Acetaminophen (Hydrocodone Bit-APAP) 5-325MG Tablet, 1 TAB PO Q6H PRN for MODERATE PAIN LEVEL 4-6, #16 TAB Prov:LALITHAAMYATITO M. 02/21/16 Diazepam* (Diazepam*) 5 Mg Tablet, 5 MG PO TID PRN for MUSCLE SPASMS, #12 TAB Prov:LALITHABENIO M. 02/21/16 Allergies Allergies: Coded Allergies: No Known Allergy (Unverified , 02/18/16) PMhx/Soc History of Surgery: No Anesthesia Reaction: No Hx Neurological Disorder: No Hx Respiratory Disorders: Yes (asthma) Hx Cardiac Disorders: No Hx Psychiatric Problems: No Hx Miscellaneous Medical Probl: Yes (see EMR) Hx Alcohol Use: Yes (occasional) Hx Substance Use: No Hx Tobacco Use: No Smoking Status: Never smoker Physical Exam Vitals Vital Signs Date Temp Pulse Resp B/P (MAP) Pulse Ox O2 O2 Flow FiO2 Time Delivery Rate 07/24/18 99.0 83 20 145/77 98 15:06 (99) Physical Exam Const: + mild distress secondary to pain Head: Atraumatic Eyes: Normal Conjunctiva ENT: Normal External Ears, Nose and Mouth. Neck: Full range of motion. No meningismus. Resp: Clear to auscultation bilaterally Cardio: Regular rate and rhythm, no murmurs Exam: Scrotum: Normal Hernia: + right inguinal indirect hernia, easily reduced Testes/Epid: Non-tender w/ normal lie Cremaster: Reflex intact Lymph: No inguinal lymphadenopathy Skin: No petechiae or rashes Back: No midline or flank tenderness Ext: No cyanosis, or edema Neur: Awake and alert Psych: Normal Mood and Affect Procedures/MDM MEDICAL DECISION MAKING: This is a 28-year-old male who presents with signs and symptoms consistent with an indirect right inguinal hernia. Hernia was easily reduced here in the department with improvement of his symptoms. There is no evidence of an incarcerated or strangulated hernia. He has no fever here. Vital signs are s table. Is otherwise hemodynamic is stable. Patient was discharged home with pain medications and school softeners. He was given referral to [facility] for further treatment of his hernia. Strict return precautions were discussed. PRESCRIPTIONS: Colace, [place] SPECIALIST FOLLOW UP RECOMMENDED: General surgery ([facility]) Patient has been advised to follow up with primary care in 1-2 days. Departure Diagnosis: Primary Impression: Inguinal hernia Obstruction and gangrene presence: without obstruction or gangrene Laterality: unilateral Recurrence: not specified as recurrent Qualified Codes: K40.90 - Unilateral inguinal hernia, without obstruction or gangrene, not specified as recurrent Condition: Stable Patient Instructions: Hernia (Inguinal, Ventral, Umbilical) [facility]: [facility] () Usted se acosta hecho un examen mdico de control que le indica que no est en lottie condicin que requiera tratamiento urgente en el Departamento de Emergencia. Un estudio ms profundo y el tratamiento de fields condicin pueden esperar sin ningn riesgo hasta que usted sea atendida/o en el consultorio de fields mdico o lottie clnica. Es responsabilidad suya arreglar lottie celestine para el seguimiento del emigdio. MANEJO DE CONDICIONES NO URGENTES EN EL FUTURO 1) Si usted tiene un mdico de atencin primaria: Usted debera llamar a fields mdico de atencin primaria antes de venir al departamento de emergencia. Despus de las horas de consultorio, fields doctor o fields asociado/a est disponible por telfono. El mdico o enfermero de brian en el servicio telefnico puede asesorarle por suly medio para atender el problema, o emigdio contrario se puede programar lottie celestine. 2) Si usted no tiene un mdico de atencin primaria: Llame al mdico o condado institucions de referencia que aparece abajo gregoria las horas de consultorio para hacer lottie celestine para que le vean. SI USTED NO PUEDE PAGAR PARA EDUARDO UN MEDICO puede ir a: [facility] [address] [place] [address] [facility] [address] [place] [address] [facility] [address] [place] [address] [facility] [address] [place], [place] [id number] Additional Instructions: Must follow-up at [facility] to see a general surgeon for your inguinal hernia. Prescribing you pain medications and stool softeners to use as needed. Return here for any new or worsening symptoms. JOSE SORIANO PA-C Jul 24, 2018 18:56
== END 2018-07-24 17:31 | disposition home or self-care (01) ==
LOC: FTE 15:03
DX: K40.90 Unilateral inguinal hernia, without obstruction or gangrene, not specified as recurrent (principal); J45.909 Unspecified asthma, uncomplicated
CPT/HCPCS: 99283